=== PATIENT | male | born 1955 | race Caucasian/White ===

== ENCOUNTER 2017-10-10 06:58 | Day surgery (SDC) | payer BC ==
[~2017-10-10] VITALS: Ht 188 cm; Wt 154.0 kg
[~2017-10-10 06:58] MED LIST: AMOCLA875 PO; ASPI81EC PO; ATOR10; ATOR20 PO; CARV3.125 PO; ENOX120I SUBQ; HYDACE5 PO; HYDCHL12.5 PO; INS70/30I; INS70/30I SUBQ; INSDET100 SC; INSULANI SUBQ; METF500; METF500C PO; Novolog Fl100 UNIT/1 UD; PHENA200 PO; PIOG30 PO; RXPHEN200 PO; TRULICITY1.5 MG/0.5 SC; VALS80; VALS80 PO; WARF5 PO
[2017-10-10] MEDS ORDERED: TORSE20 PO (11:19)
== END 2017-10-10 15:00 | disposition home or self-care (01) ==
LOC: MHTC 06:58
PROC: B211YZZ Fluoroscopy of Multiple Coronary Arteries using Other Contrast (ICD-10-PCS; principal; 2017-10-10)
DX: I42.0 Dilated cardiomyopathy (principal); I35.0 Nonrheumatic aortic (valve) stenosis; Z86.718 Personal history of other venous thrombosis and embolism; E78.5 Hyperlipidemia, unspecified; E11.22 Type 2 diabetes mellitus with diabetic chronic kidney disease; I12.9 Hypertensive chronic kidney disease with stage 1 through stage 4 chronic kidney disease, or unspecified chronic kidney disease; N18.9 Chronic kidney disease, unspecified; E66.01 Morbid (severe) obesity due to excess calories
CPT/HCPCS: 82947; 93454; 99152; 99153; C1769; C1894; J0690; J1644; J2250; J3010; J7030; Q9967

== ENCOUNTER → 2018-04-27 | Outpatient (CLI) | payer BC, MEDICARE ==
[~2018-04-27] MED LIST changes: +TORSE20 PO
== END ==
LOC: LAB SHORT 16:47 → LAB 16:47
DX: N18.9 Chronic kidney disease, unspecified (principal); D75.1 Secondary polycythemia; E53.8 Deficiency of other specified B group vitamins; R06.02 Shortness of breath
CPT/HCPCS: 82607; 82746

== ENCOUNTER → 2018-08-14 | Outpatient (CLI) | payer BC, MEDICARE ==
[2018-08-14 18:03] LABS: Creatinine, Urine Random 73.2 mg/dL (27.00-270.00)
[2018-08-14 18:05] LABS: Microalb/Creat Ratio UR, Rand 217.213 mg/g (0.000-30.000)
== END ==
LOC: LAB SHORT 14:19 → LAB 14:19
PROVIDERS: Nurse Practitioner Family
DX: E11.65 Type 2 diabetes mellitus with hyperglycemia (principal)
CPT/HCPCS: 82043; 82570

== ENCOUNTER → 2023-03-02 | Outpatient (CLI) | payer MEDICARE, BC | LOC: LAB SHORT 14:36 → LAB 14:36 | DX: N39.0 Urinary tract infection, site not specified (principal) | CPT/HCPCS: 87086; 87106 ==

== ENCOUNTER 2023-11-27 15:56 | Inpatient (IN) | payer MEDICARE, BC ==
[~2023-11-27] VITALS: Ht 188 cm; Wt 144.3 kg
[2023-11-27 16:36] LABS: BASOPHILS ABSOLUTE AUTO 0.06 K/mm3 (0.00-0.23); BASOPHILS PERCENT AUTO 1 % (0-2); EOSINOPHILS ABSOLUTE AUTO 0.14 K/mm3 (0.00-0.68); EOSINOPHILS PERCENT AUTO 2 % (0-6); Hematocrit 51.8 % (37.0-53.0); Hemoglobin 16.5 g/dL (13.5-17.5); IMMATURE GRAN ABSOLUTE AUTO 0.02 K/mm3 (0.00-0.10); IMMATURE GRAN PERCENT AUTO 0 % (0-1); LYMPHOCYTES ABSOLUTE AUTO 2.72 K/mm3 (0.84-5.20); LYMPHOCYTES PERCENT AUTO 36 % (21-46); MONOCYTES ABSOLUTE AUTO 0.63 K/mm3 (0.16-1.47); MONOCYTES PERCENT AUTO 8 % (4-13); Mean Corpuscular HGB 29.7 pg (26.0-34.0); Mean Corpuscular HGB Conc 31.9 g/dL (31.5-36.5); Mean Corpuscular Volume 93 fL (80-100); Mean Platelet Volume 9.5 fL (9.1-12.4); NEUTROPHILS PERCENT AUTO 53 % (41-73); Platelet Count 226 K/mm3 (150-400); RDW Coefficient Variation 14.1 % (11.7-14.2); RDW Standard Deviation 48.1 fL (35.1-46.3); Red Blood Cell Count 5.55 M/mm3 (4.30-5.90); White Blood Cell Count 7.67 K/mm3 (4.00-11.30)
[2023-11-27 16:46] LABS: Albumin, Blood 3.1 g/dL (3.4-5.0); Albumin/Globulin Ratio 0.7 (0.8-1.8); Bilirubin, Total 0.6 mg/dL (0.1-1.0); Bun/Creatinine Ratio 23.4 (12.0-20.0); Creatinine, Blood 2.22 mg/dL (0.60-1.20); Globulin, Blood 4.5 g/dL (2.2-4.0); Total Protein, Blood 7.6 g/dL (6.4-8.2)
[2023-11-27 18:11] LABS: International Normalized Ratio 2.54; Prothrombin Time Results 25.4 Sec (9.7-11.5)
[2023-11-28] VITALS (7 sets, daily range): BP systolic 127–165; BP diastolic 62–88
[2023-11-28] MEDS ORDERED: HYDCHL25 PO (00:48)
[2023-11-28] MEDS ORDERED: LOSA50 PO (00:48)
[2023-11-28] MEDS ORDERED: ASPI81CH PO (00:50)
[2023-11-28] MEDS ORDERED: HydrALAZINE HCl 20 MG / ML 1ML Vial IV PRN (00:55)
--- NOTE | 2023-11-28 01:32 | NUR ---
PT ARRIVED ON UNIT AT ABOUT ~0030. AOX4, PLEASANT, COOPERATIVE WITH CARE, EDUCATED SPECIFICATIONS WRITER LIGHT USE, ABLE TO MAKE NEEDS KNOWN. ADMITTED FOR LEFT SIDE PLEURAL EFFUSION. MAINTAINING ADEQUATE SATURATION ON 6 L O2 VIA NC, DENIES ANY PAIN. SHALLOW BREATHS. VITALS OTHERWISE STABLE. TELE IN PLACE, RUNNING PACED IN THE 60s. DENIES ANY PAIN OF ANY KIND. BEDREST AT THIS TIME DUE TO DYSPNEA WITH EXERTION, EDUCATED ON URINAL USE. ADMISSION PROCESS COMPLETED PER PROTOCOL. BED LOCKED IN LOWEST POSITION. CALL LIGHT LEFT WITHIN REACH. CONTINUING TO MONITOR.
[2023-11-28] MEDS ORDERED: Melatonin 5 MG Tablet PO PRN (01:35)
[2023-11-28 04:58] LABS: International Normalized Ratio 2.6; Prothrombin Time Results 25.9 Sec (9.7-11.5)
--- NOTE | 2023-11-28 05:00 | NUR ---
SHIFT SUMMARY. SHIFT HAS BEEN UNREMARKABLE SINCE ADMISSION NOTE. PT AOX4, PLEASANT, COOPERATIVE WITH CARE, CALLS APPROPRIATELY FOR ASSISTANCE, ABLE TO MAKE NEEDS KNOWN. HAS BEEN ABLE TO REST COMFORTABLY THROUGHOUT MOST OF SHIFT. CONTINUES TO DENY PAIN. INDEPENDENT WITH URINAL AND CALLS APPROPRIATELY FOR ASSISTANCE. TELE ON THROUGHOUT SHIFT, CONTINUES TO RUN PACED IN 60s-70s PRIMARILY. CONTINUES TO MAINTAIN ADEQUATE SATURATION ON 6-7 L O2 VIA NC. BED LOCKED IN LOWEST POSITION. CALL LIGHT LEFT WITHIN REACH. CONTINUING TO MONITOR.
[2023-11-28 06:49] LABS: Hematocrit 51.9 % (37.0-53.0); Hemoglobin 16.3 g/dL (13.5-17.5); Mean Corpuscular HGB 29.5 pg (26.0-34.0); Mean Corpuscular HGB Conc 31.4 g/dL (31.5-36.5); Mean Corpuscular Volume 94 fL (80-100); Mean Platelet Volume 9.9 fL (9.1-12.4); Platelet Count 219 K/mm3 (150-400); RDW Coefficient Variation 14.1 % (11.7-14.2); RDW Standard Deviation 48.1 fL (35.1-46.3); Red Blood Cell Count 5.53 M/mm3 (4.30-5.90); White Blood Cell Count 8.37 K/mm3 (4.00-11.30)
[2023-11-28 07:00] LABS: Bun/Creatinine Ratio 24.9 (12.0-20.0); Calcium, Blood 9.4 mg/dL (8.5-10.1); Creatinine, Blood 2.17 mg/dL (0.60-1.20)
[2023-11-28] MEDS ORDERED: Insulin Human Lispro 100 Units/ML 3ML Syringe SC SCH ×2 (07:30→12:30)
[2023-11-28] MEDS ORDERED: HydroCHLOROthiazide 25 mg Tab PO SCH ×2 (09:00)
[2023-11-28] MEDS ORDERED: Atorvastatin 10 MG Tab PO SCH (09:00)
[2023-11-28] MEDS ORDERED: Carvedilol 3.125 MG Tab PO SCH (09:00)
[2023-11-28] MEDS ORDERED: Sodium Zirconium Cyclosilicate 10 GM Packet PO SCH (09:00)
[2023-11-28] MEDS ORDERED: Aspirin 81 MG Chew PO SCH (09:00)
[2023-11-28] MEDS ORDERED: Furosemide 10 MG/ML 4ML Vial IV ONE (09:00)
[2023-11-28] MEDS ORDERED: Losartan Potassium 50 MG Tab PO SCH (09:00)
[2023-11-28] MEDS ORDERED: Insulin Glargine-Yfgn 100 Unit/mL 3 ML SYR SC SCH ×3 (10:00→21:00)
[2023-11-28] MEDS ORDERED: Phytonadione 5 MG Tab PO STA (11:37)
[2023-11-28] MEDS ORDERED: Phytonadione 5 MG in NS 50 ML IV ONE ×2 (11:45→16:10)
[2023-11-28] MEDS ORDERED: FENO54 PO (12:14)
[2023-11-28] MEDS ORDERED: GLIP10 PO (12:14)
[2023-11-28] MEDS ORDERED: THERA-D2000 UNIT PO (12:15)
[2023-11-28] MEDS ORDERED: MAGNESIUM OXID500 MG PO (12:16)
[2023-11-28] MEDS ORDERED: FISH OIL 1,2001 EAC4 PO (12:16)
[2023-11-28] MEDS ORDERED: TORSE20 PO (12:17)
[2023-11-28] MEDS ORDERED: Carvedilol12.5 MG PO (12:19)
[2023-11-28] MEDS ORDERED: HUMALOG KW100 UNIT/1 SC (12:23)
[2023-11-28] MEDS ORDERED: INSULANI SC (12:23)
[2023-11-28 12:58] LABS: Bun/Creatinine Ratio 26.1 (12.0-20.0); Calcium, Blood 9.4 mg/dL (8.5-10.1); Creatinine, Blood 2.22 mg/dL (0.60-1.20); Potassium, Blood 5.6 mmol/L (3.5-5.5)
--- NOTE | 2023-11-28 15:19 | NUR ---
Pt. 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 Facilitated introductions of otherss present and life review. Pt. is pleasant, and requested prayer. Pt. displayed evidence of peace and confident trust. Prayed for the Pt. Pt. family and friends all verbalize gratitude for the spiritual care visit.
[2023-11-28 15:30] LABS: International Normalized Ratio 2.14
[2023-11-28 15:59] LABS: Prothrombin Time Results 21.6 Sec (9.7-11.5)
--- NOTE | 2023-11-28 18:16 | NUR ---
ASSUMED CARE OF PT AT 0700 THIS AM. NO ACUTE CHANGES T/O THE SHIFT, 02 HAS REMAINED AT 8L AND VS HAVE REMAINED STABLE. SEE DOCUMENTED VS AND ASSESSMENT. PT CONTINUES TO REPORT SHORTNESS OF BREATH AND DRY NONPRODUCTIVE COUGH, BUT THESE SYMPTOMS HAVE NOT WORSENED. THIS RN WAS INFORMED EARLY IN THE SHIFT THAT RADIOLOGY REFUSED TO PLACE CHEST TUBE D/T ELEVATED INR. DR JIANG AT BEDSIDE AT THIS TIME AND NOTIFIED OF THIS INFORMATION, HE STATES HE WILL DISCUSS WITH THE PT'S CARE TEAM. THIS RN ALSO DISCUSSED THIS INFORMATION WITH DR MICHAELS. VIT K X 2 GIVEN THIS SHIFT AND LOKALMA ADMINISTERED PER MD ORDERS FOR CRITICAL POTASSIUM REPORTED AT 0700. REPEAT LABS ORDERED FOR AM. PT/ HAVE BEEN UPDATED ON PLAN OF CARE T/O THE DAY. PT IS ABLE TO USE CALL LIGHT FOR NEEDS, CALL LIGHT IN REACH. WILL CONTINUE TO MONITOR AND GIVE REPORT TO NOC SHIFT RN.
[2023-11-29] VITALS (8 sets, daily range): BP systolic 127–151; BP diastolic 66–75
--- NOTE | 2023-11-29 04:35 | NUR ---
SHIFT SUMMARY. SHIFT HAS BEEN UNREMARKABLE. PT AOX4, PLEASANT, COOPERATIVE WITH CARE, CALLS APPROPRIATELY, ABLE TO MAKE NEEDS KNOWN. HAS BEEN ABLE TO REST COMFORTABLY THROUGHOUT SHIFT. CONTINUES TO DENY PAIN. HAS MAINTAINED ADEQUATE SATURATION ON 6-8 L O2 VIA NC THROUGHOUT SHIFT. CONTINUES TO RUN PACED RHYTHM. VITALS OTHERWISE STABLE. CONSISTENT URINE OUTPUT ALL CHARTED APPROPRIATELY, INDEPENDENT WITH URINAL. BED LOCKED IN LOWEST POSITION. CALL LIGHT LEFT WITHIN REACH. CONTINUING TO MONITOR.
[2023-11-29 04:39] LABS: BASOPHILS ABSOLUTE AUTO 0.04 K/mm3 (0.00-0.23); BASOPHILS PERCENT AUTO 0 % (0-2); EOSINOPHILS ABSOLUTE AUTO 0.03 K/mm3 (0.00-0.68); EOSINOPHILS PERCENT AUTO 0 % (0-6); Hematocrit 49.7 % (37.0-53.0); Hemoglobin 15.7 g/dL (13.5-17.5); IMMATURE GRAN ABSOLUTE AUTO 0.03 K/mm3 (0.00-0.10); IMMATURE GRAN PERCENT AUTO 0 % (0-1); LYMPHOCYTES ABSOLUTE AUTO 2.04 K/mm3 (0.84-5.20); LYMPHOCYTES PERCENT AUTO 23 % (21-46); MONOCYTES PERCENT AUTO 8 % (4-13); Mean Corpuscular HGB 29.5 pg (26.0-34.0); Mean Corpuscular HGB Conc 31.6 g/dL (31.5-36.5); Mean Corpuscular Volume 93 fL (80-100); Mean Platelet Volume 9.6 fL (9.1-12.4); NEUTROPHILS ABSOLUTE AUTO 6.16 K/mm3 (1.96-9.15); NEUTROPHILS PERCENT AUTO 69 % (41-73); Platelet Count 213 K/mm3 (150-400); RDW Coefficient Variation 14.1 % (11.7-14.2); RDW Standard Deviation 47.5 fL (35.1-46.3); Red Blood Cell Count 5.33 M/mm3 (4.30-5.90)
[2023-11-29 04:51] LABS: International Normalized Ratio 1.39; Prothrombin Time Results 14.5 Sec (9.7-11.5)
[2023-11-29 05:19] LABS: Bun/Creatinine Ratio 26.9 (12.0-20.0); Calcium, Blood 9.1 mg/dL (8.5-10.1); Creatinine, Blood 2.38 mg/dL (0.60-1.20); Potassium, Blood 4.6 mmol/L (3.5-5.5)
[2023-11-29] MEDS ORDERED: Torsemide 20 MG TAB PO PRN (13:05)
--- NOTE | 2023-11-29 13:45 | NUR ---
PT RETURNED FROM THORACENTESIS PT RETURNED TO ROOM AND TRANSFERED OVER TO BY VIA SLIDE SHEET AND 5 MEDICAL STAFF. PER REPORT FROM RADIOLOGY THEY REMOVED 1.5L FROM THE LEFT SIDE, AND THAT THE PT TOLERATED THE PROCEDURE WELL. LUNG SOUNDS ARE NOW RUL CRACKLY, RML CRACKLY, RLL, CRACKLY, TAYLOR CRACKLY, LLL DIM WITH CRACKELS. PT ABLE TO TAKE DEEPER BREATHS AND REPORTS FEELING LIKE HIS CHEST CAN NOW RISE. PTS OXYGEN DEMANDS AND ALSO SIGNIFICANTLY IMPROVED SP02 >95% ON 3L O2 VIA NC. PT REMAINING ON CONTINOUS SPO2 MONITORING.
[2023-11-29 14:19] LABS: Automated BF RBC Count 0.051 M/mm3 (0-0); Automated BF WBC Count 1.508 K/mm3 (0-999)
[2023-11-29 14:20] LABS: Glucose, Body Fluid 211 mg/dL; Lactate Dehydrogenase, Body Fl 280 U/L; Protein, Body Fluid 4.8 g/dL
[2023-11-29 14:24] LABS: Body Fluid WBC Count 1508 /mm3 (0-999); RBC Count, Body Fluid 51000 /mm3 (0-0)
[2023-11-29 14:25] LABS: pH, Body Fluid 6.4
[2023-11-29 14:52] LABS: Total Cell Count, Body Fluid 100
[2023-11-29 14:53] LABS: Appearance, Body Fluid Cloudy (Clear); Color, Body Fluid Amber (None-Yellow)
--- NOTE | 2023-11-29 17:38 | NUR ---
SHIFT SUMMARY PT A&O TO PERSON, PLACE, TIME, AND SITUATION. PT HAD AT BEDSIDE FOR MOST OF THIS SHIFT. PT LEFT FOR THORACENTESIS THIS AFTERNOON 11/28, SEE RADIOLOGY REPORT FOR DETAILS, CULTURES ARE WAITING. PT CAME BACK TO ROOM SEE PREVIOUS NOT BY THIS RN. PTS OXYGEN DEMAND HAS SIGNIGICANTLY IMPROVED AND IS NOW ON 3L O2 SPO2 >95%, BREATHS APEAR TO BE DEEPER THAN START OF SHIFT. PT REPORTS IMPROVED WORK OF BREATHING. NO ACCUTE CHANGES THIS SHIFT. CALL LIGHT IN REACH, BED LOWEST POSTION, AT BEDSIDE. AWAITING TO GIVE ONCOMING RN REPORT.
[2023-11-29] MEDS ORDERED: Warfarin Sodium 7.5 MG Tab PO ONE (18:00)
[2023-11-29] MEDS ORDERED: Warfarin Sodium 5 MG Tab PO SCH (18:00)
[2023-11-29] MEDS ORDERED: Torsemide 20 MG TAB PO SCH (18:00)
[2023-11-30 04:41] VITALS: BP 142/75
[2023-11-30 04:41] LABS: International Normalized Ratio 1.16; Prothrombin Time Results 12.3 Sec (9.7-11.5)
--- NOTE | 2023-11-30 04:44 | NUR ---
SHIFT SUMMARY. SHIFT HAS BEEN UNREMARKABLE. PT AOX4, PLEASANT, COOPERATIVE WITH CARE, CALLS APPROPRIATELY FOR ASSISTANCE, ABLE TO MAKE NEEDS KNOWN. HAS BEEN ABLE TO REST COMFORTABLY THROUGHOUT SHIFT. CONTINUES TO DENY PAIN. WHILE SLEEPING, HAS REQUIRED O2 TITRATION UP TO 5-6 L O2 VIA NC WHILE SLEEPING. CONTINUES TO REPORT EASIER WORK OF BREATHING AND HAS BEEN USING INCENTIVE SPIROMETER PRN. CONTINUES TO INDEPENDENTLY USE URINAL AT BEDSIDE. CONTINUES TO RUN PACED RHYTHM ON TELE. VITALS REMAIN STABLE. BED LOCKED IN LOWEST POSITION. CALL LIGHT LEFT WITHIN REACH. CONTINUING TO MONITOR.
[2023-11-30 04:54] LABS: Bun/Creatinine Ratio 31.8 (12.0-20.0); Calcium, Blood 9.4 mg/dL (8.5-10.1); Creatinine, Blood 2.11 mg/dL (0.60-1.20); Magnesium, Blood 2.2 mg/dL (1.6-2.4); Potassium, Blood 4.4 mmol/L (3.5-5.5)
[2023-11-30 08:36] VITALS: BP 135/74
[2023-11-30 11:49] VITALS: BP 115/61
[2023-11-30] MEDS ORDERED: LOSARTAN POTAS100 M1 PO (14:48)
[2023-11-30] MEDS ORDERED: LOSARTAN POTAS100 MG PO (14:57)
--- NOTE | 2023-11-30 16:28 | NUR ---
DISCHARGE NOTE ASSUMED CARE OF PT AT 0700 THIS AM. NO ACUTE EVENTS. PT WEANED OFF O2, RESTING SP02 88-93%. PT REPORTS HIS BREATHING FEELS MUCH BETTER TODAY, WORKED WITH PT AND WAS WALKING IN THE HALLWAY. SEE DOCUMENTED VS AND ASSESSMENT. PT DISCHARGED HOME THIS AFTERNOON IN THE CARE OF HIS . ALL DISCHARGE TEACHING REVIEWED WITH PT/ INCLUDING MEDICATION CHANGE, MEDICATION LIST, FOLLOW UP APPOINTMENTS/INSTRUCTIONS AND EDUCATION MATERIALS. PT/ VERBALIZE UNDERSTANDING AND STATE THEY HAVE NO FURTHER QUESTIONS AT THIS TIME. PT DISCHARGED WITH ALL BELONGINGS. IV REMOVED WNL. NO FURTHER DISCHARGE NEEDS IDENTIFIED.
[2023-11-30] MEDS ORDERED: Warfarin Sodium 5 MG Tab PO SCH (18:00)
== END 2023-11-30 15:34 | disposition home health service (06) | DRG 186 ==
LOC: ER 15:56 → PCU 22:55
PROVIDERS: Family Medicine; Student in an Organized Health Care Education/Training Program; ADMIT Internal Medicine
PROC: 0W9B3ZZ Drainage of Left Pleural Cavity, Percutaneous Approach (ICD-10-PCS; principal; 2023-11-29)
DX: J94.2 Hemothorax (principal); J96.01 Acute respiratory failure with hypoxia; J98.11 Atelectasis; J90 Pleural effusion, not elsewhere classified; N18.30 Chronic kidney disease, stage 3 unspecified; I12.9 Hypertensive chronic kidney disease with stage 1 through stage 4 chronic kidney disease, or unspecified chronic kidney disease; R79.89 Other specified abnormal findings of blood chemistry; E78.5 Hyperlipidemia, unspecified; I48.0 Paroxysmal atrial fibrillation; Z95.2 Presence of prosthetic heart valve; E11.22 Type 2 diabetes mellitus with diabetic chronic kidney disease; Z79.01 Long term (current) use of anticoagulants; S22.42XD Multiple fractures of ribs, left side, subsequent encounter for fracture with routine healing; W18.30XA Fall on same level, unspecified, initial encounter; Z99.81 Dependence on supplemental oxygen; Z90.49 Acquired absence of other specified parts of digestive tract; Z90.89 Acquired absence of other organs; Z98.890 Other specified postprocedural states; Z95.0 Presence of cardiac pacemaker; Z79.4 Long term (current) use of insulin; Z79.899 Other long term (current) drug therapy
CPT/HCPCS: 32555; 36415; 71045; 71046; 71250; 80048; 80053; 82945; 82947; 83615; 83735; 83880; 83986; 84157; 84484; 85025; 85027; 85610; 86850; 86900; 86901; 87070; 87075; 87205; 88108; 88305; 88342; 89051; 93005; 93010; 93970; 94760; 94761; 94762; 97116; 97162; 99285-25; A9270; C8929; J1815; J1940; J3430; Q9957